=== PATIENT | female | born 1940 | race Hispanic/Latino ===

== ENCOUNTER 2016-10-02 14:53 | Outpatient (CLI) | payer MEDICARE, MEDICAID ==
[2016-10-02 16:22] LABS: #Basophils 0.1 thou/uL (0.0-0.2); #Eosinphils 0.2 thou/uL (0.0-0.7); #Lymphocytes 1.9 thou/uL (1.20-3.40); #Monocytes 0.7 thou/uL (0.11-0.59); #Neutrophils 2.9 thou/uL (1.40-6.50); %Basophils 2.3 % (0.0-1.0); %Eosinophils 3.4 % (0.0-10.0); %Lymphocytes 32.2 % (21.0-51.0); %Monocytes 11.5 % (0.0-10.0); %Neutrophils 50.5 % (42.0-75.0); Hemoglobin 12.1 g/dL (12.0-16.0); Mean Corpuscular HGB CONC 33.2 g/dL (32.0-36.0); Mean Corpuscular Hemoglobin 28.7 pg (27.0-31.0); Mean Corpuscular Volume 86.7 fl (81.0-99.0); Mean Platelet Volume 6.1 fL (7.4-10.4); Platelet Count 274 thou/uL (130-400); RBC Distribution Width 13.1 % (11.5-14.5); Red Blood Cell (RBC) Count 4.22 mill/uL (4.20-5.40); White Blood Cell (WBC) Count 5.8 thou/uL (4.8-10.8)
[2016-10-02 16:37] LABS: Anion Gap 18 mmol/L (10-20); BUN (Urea Nitrogen) 44 mg/dL (9.8-20.1); Calc. Creatinine Clearance 0 mL/min (70-130); Carbon Dioxide 24 mmol/L (23-31); Chloride 106 mmol/L (98-107); Estimated GFR-MDRD 46; Potassium 4.5 mmol/L (3.5-5.1); Sodium 143 mmol/L (136-145)
[2016-10-02 16:38] LABS: ALT (SGPT) 16 U/L (8-55); AST (SGOT) 26 U/L (5-34); Albumin 4.1 g/dL (3.4-4.8); Alkaline Phosphatase 67 U/L (40-150); Bilirubin, Total 0.3 mg/dL (0.2-1.2); Cardiac Risk 2.3 (Less than 4.5); Cholesterol 185 mg/dl (< 200 Desired); Globulin 2.8 g/dL (2.4-3.5); Glucose 142 mg/dL (83-110); HDL Cholesterol 82 mg/dL (>60 Neg Risk); LDL Cholesterol, Calculated 93 mg/dL; Protein, Total 6.9 g/dL (6.0-8.3); Triglycerides 48 mg/dL (Less than 150)
[2016-10-02 16:54] LABS: Hemoglobin A1c 7.4 % (4.0-6.0)
[2016-10-02 17:55] LABS: Creatinine, Urine 111.2 mg/dL (47-110); Microalbumin/Creat Ratio 80.9 mg/g (Less than 30)
== END 2016-10-02 14:54 | disposition home or self-care (01) ==
LOC: LABLEX 14:53
PROVIDERS: ATTEND Family Medicine
DX: D64.9 Anemia, unspecified (principal); I10 Essential (primary) hypertension; E11.9 Type 2 diabetes mellitus without complications
CPT/HCPCS: 80053; 80061; 82043; 83036; 84443; 85025